=== PATIENT | male | born 1970 | race Caucasian/White ===

== ENCOUNTER → 2019-05-19 | Outpatient (REF) | payer BC, MEDICAID ==
[2019-05-19 14:53] LABS: APPEARANCE, URINE CLEAR (CLEAR); BACTERIA, URINE AUTO NEGATIVE (NEGATIVE); BILIRUBIN, URINE AUTO NEGATIVE (NEGATIVE); BLOOD, URINE BLOOD NEGATIVE (NEGATIVE); COLOR, URINE YELLOW (YELLOW); GLUCOSE, URINE (UA) AUTO NEGATIVE (NEGATIVE); KETONE, URINE AUTO NEGATIVE (NEGATIVE); LEUKOCYTE ESTERASE, URINE AUTO NEGATIVE (NEGATIVE); MUCUS, URINE SMALL (NEGATIVE); NITRITE, URINE AUTO NEGATIVE (NEGATIVE); PROTEIN, URINE AUTO NEGATIVE (NEGATIVE); RBC, URINE AUTO 3 /HPF (0-3); SPECIFIC GRAVITY URINE AUTO 1.017 (1.002-1.035); SQUAMOUS EPITHELIAL CELL UR AU 0 /HPF (0-6); UROBILINOGEN, URINE AUTO 0.2 mg/dL (0.0-2.0); WBC, URINE AUTO 0 /HPF (0-3)
[2019-05-19 15:05] LABS: ALBUMIN 4.4 GM/DL (3.2-5.2); ALT/SGPT 19 U/L (12-78); BILIRUBIN,TOTAL 0.5 MG/DL (0.2-1.0); BLOOD UREA NITROGEN 13 MG/DL (7-18); CALCIUM LEVEL 9.5 MG/DL (8.5-10.1); CARBON DIOXIDE LEVEL 34 MEQ/L (21-32); CHLORIDE LEVEL 102 MEQ/L (98-107); CREATININE FOR GFR 1.17 MG/DL (0.70-1.30); GLOMERULAR FILTRATION RATE > 60.0 (>56); GLUCOSE, FASTING 77 MG/DL (70-100); POTASSIUM SERUM 4.3 MEQ/L (3.5-5.1); SODIUM LEVEL 139 MEQ/L (136-145)
[2019-05-19 16:41] LABS: CHLAMYDIA DNA AMPLIFICATION NEGATIVE (NEGATIVE); GC DNA AMPLIFICATION NEGATIVE (NEGATIVE)
[2019-05-20 11:16] LABS: HEPATITIS B SURFACE ANTIBODY POSITIVE (POSITIVE)
[2019-05-20 11:24] LABS: HEPATITIS B SURFACE ANTIGEN NEGATIVE (NEGATIVE)
[2019-05-20 11:53] LABS: HEPATITIS C VIRUS ABY INDEX 0.1 INDEX (<0.8)
[2019-05-24 00:06] LABS: % CD8 Pos Lymph 65.4 % (12.0-35.5); %CD4 Pos Lymphs 5.6 % (30.8-58.5); ABS Basophils 0.1 x10E3/uL (0.0-0.2); ABS Eosinophils 0.2 x10E3/uL (0.0-0.4); ABS Lymphs 2.2 x10E3/uL (0.7-3.1); ABS Monocytes 0.4 x10E3/uL (0.1-0.9); ABS Neutophils 3.1 x10E3/uL (1.4-7.0); Abs CD4 Helper 123 /uL (359-1519); Abs CD8 Suppres 1439 /uL (109-897); CD4/CD8 Ratio 0.09 (0.92-3.72); Eosinophils 3 % (Not Estab.); HCT 47.7 % (37.5-51.0); HEPATITIS A IgG TOTAL Positive (Negative); HEPATITIS B CORE ANTIBODY IGG Positive (Negative); HGB 17.1 g/dL (13.0-17.7); HIV-1 RNA PCR QUANT 2 LC550285 <20 copies/mL (.); Immature Grans 0 % (Not Estab.); Lymphocytes 37 % (Not Estab.); MCH 33.1 pg (26.6-33.0); MCHC 35.8 g/dL (31.5-35.7); MCV 92 fL (79-97); Monocytes 7 % (Not Estab.); Neutrophils 52 % (Not Estab.); Platelets 265 x10E3/uL (150-450); RBC 5.17 x10E6/uL (4.14-5.80); RDW 14.4 % (12.3-15.4); WBC 5.9 x10E3/uL (3.4-10.8)
== END ==
LOC: M SFHCPLAZ 11:30
PROVIDERS: ATTEND Internal Medicine Infectious Disease
DX: B20 Human immunodeficiency virus [HIV] disease (principal)

== ENCOUNTER → 2020-10-25 | Outpatient (REF) | payer OTHER ==
[2020-10-25 12:12] LABS: ALBUMIN 3.7 GM/DL (3.2-5.2); ALT/SGPT 22 U/L (12-78); BILIRUBIN,TOTAL 0.2 MG/DL (0.2-1.0); BLOOD UREA NITROGEN 12 MG/DL (7-18); CALCIUM LEVEL 8.7 MG/DL (8.5-10.1); CARBON DIOXIDE LEVEL 29 MEQ/L (21-32); CHLORIDE LEVEL 106 MEQ/L (98-107); CREATININE FOR GFR 0.92 MG/DL (0.70-1.30); GLOMERULAR FILTRATION RATE > 60.0 (>56); GLUCOSE, FASTING 87 MG/DL (70-100); POTASSIUM SERUM 4.5 MEQ/L (3.5-5.1); SODIUM LEVEL 141 MEQ/L (136-145); TOTAL PROTEIN 6.8 GM/DL (6.4-8.2)
[2020-10-27 04:07] LABS: % CD8 Pos Lymph 59.6 % (12.0-35.5); %CD4 Pos Lymphs 10.4 % (30.8-58.5); ABS Basophils 0.1 x10E3/uL (0.0-0.2); ABS Eosinophils 0.2 x10E3/uL (0.0-0.4); ABS Lymphs 1.9 x10E3/uL (0.7-3.1); ABS Monocytes 0.4 x10E3/uL (0.1-0.9); ABS Neutophils 2.2 x10E3/uL (1.4-7.0); Abs CD4 Helper 198 /uL (359-1519); Abs CD8 Suppres 1132 /uL (109-897); CD4/CD8 Ratio 0.17 (0.92-3.72); Eosinophils 4 % (Not Estab.); HCT 43.6 % (37.5-51.0); HGB 15.2 g/dL (13.0-17.7); HIV-1 RNA PCR QUANT 2 LC550285 <20 copies/mL (.); Immature Grans 0 % (Not Estab.); Lymphocytes 39 % (Not Estab.); MCH 33.6 pg (26.6-33.0); MCHC 34.9 g/dL (31.5-35.7); MCV 97 fL (79-97); Monocytes 8 % (Not Estab.); Neutrophils 47 % (Not Estab.); Platelets 288 x10E3/uL (150-450); RBC 4.52 x10E6/uL (4.14-5.80); RDW 11.9 % (11.6-15.4); WBC 4.7 x10E3/uL (3.4-10.8)
== END ==
LOC: M SFHCPLAZ 08:54
PROVIDERS: ATTEND Internal Medicine Infectious Disease
DX: B20 Human immunodeficiency virus [HIV] disease (principal)

== ENCOUNTER → 2021-04-30 | Outpatient (REF) | payer OTHER ==
[2021-04-30 14:10] LABS: ALBUMIN 3.9 GM/DL (3.2-5.2); ALT/SGPT 28 U/L (12-78); BILIRUBIN,TOTAL 0.4 MG/DL (0.2-1.0); BLOOD UREA NITROGEN 15 MG/DL (7-18); CALCIUM LEVEL 9.5 MG/DL (8.5-10.1); CARBON DIOXIDE LEVEL 29 MEQ/L (21-32); CHLORIDE LEVEL 106 MEQ/L (98-107); CHOLESTEROL LEVEL 238 MG/DL (<200); CHOLESTEROL RISK RATIO 2.704 (<5); CREATININE FOR GFR 0.88 MG/DL (0.70-1.30); GLOMERULAR FILTRATION RATE > 60.0 (>56); GLUCOSE, FASTING 92 MG/DL (70-100); HDL CHOLESTEROL 88 MG/DL (>40); LDL CHOLESTEROL 126 MG/DL (<100); NON-HDL-C 150 MG/DL; POTASSIUM SERUM 4.8 MEQ/L (3.5-5.1); SODIUM LEVEL 140 MEQ/L (136-145); TOTAL PROTEIN 7.1 GM/DL (6.4-8.2); TRIGLYCERIDES LEVEL 120 MG/DL (<150)
[2021-04-30 14:58] LABS: HEPATITIS C VIRUS ABY INDEX < 0.0 INDEX (<0.8)
[2021-05-01 18:12] LABS: % CD8 Pos Lymph 58.7 % (12.0-35.5); %CD4 Pos Lymphs 11.5 % (30.8-58.5); ABS Basophils 0.1 x10E3/uL (0.0-0.2); ABS Eosinophils 0.2 x10E3/uL (0.0-0.4); ABS Lymphs 2.1 x10E3/uL (0.7-3.1); ABS Monocytes 0.5 x10E3/uL (0.1-0.9); ABS Neutophils 2.7 x10E3/uL (1.4-7.0); Abs CD4 Helper 242 /uL (359-1519); Abs CD8 Suppres 1233 /uL (109-897); Eosinophils 4 % (Not Estab.); HCT 45.6 % (37.5-51.0); HGB 16.6 g/dL (13.0-17.7); HIV-1 RNA PCR QUANT 2 LC550285 20 copies/mL (.); HIV-1 RNA PCR QUANT 3 LC550285 1.301 (.); Immature Grans 1 % (Not Estab.); Lymphocytes 37 % (Not Estab.); MCH 33.5 pg (26.6-33.0); MCHC 36.4 g/dL (31.5-35.7); MCV 92 fL (79-97); Monocytes 9 % (Not Estab.); Neutrophils 47 % (Not Estab.); Platelets 291 x10E3/uL (150-450); RBC 4.95 x10E6/uL (4.14-5.80); RDW 11.4 % (11.6-15.4); WBC 5.7 x10E3/uL (3.4-10.8)
== END ==
LOC: M SFHCPLAZ 10:47
PROVIDERS: ATTEND Internal Medicine Infectious Disease
DX: B20 Human immunodeficiency virus [HIV] disease (principal); Z13.220 Encounter for screening for lipoid disorders; Z12.5 Encounter for screening for malignant neoplasm of prostate

== ENCOUNTER 2024-11-23 18:23 | Inpatient (IN) | payer OTHER ==
[~2024-11-23] VITALS: Ht 180.3 cm; Wt 67.0 kg
[2024-11-23] MEDS: ACETAMINOPHEN 325 MG TAB PO ONE (19:03)
[2024-11-23] MEDS: NS (Normal Saline) 0.9% 1,000 ML IV ONE ×2 (19:03→21:13)
[2024-11-23 19:41] LABS: BASO % 0.4 % (0.0-1.0); EOS % 0.4 % (0.0-3.0); HEMATOCRIT 29.7 % (42.0-52.0); HEMOGLOBIN 9.8 g/dl (13.5-17.5); LYMPH # 0.4 10^3/uL (1.5-5.0); LYMPH % 14.9 % (24.0-44.0); MEAN CORPUSCULAR VOLUME 84.9 fl (80.0-96.0); MONO # 0.2 10^3/uL (0.0-0.8); MONO % 8.4 % (2.0-8.0); NEUTROPHILS # 2.1 10^3/uL (1.5-8.5); NEUTROPHILS % 74.4 % (36.0-66.0); PLATELET COUNT, AUTOMATED 159 10^3/uL (150-450); WHITE BLOOD COUNT 2.8 10^3/uL (4.0-10.0)
[2024-11-23 19:43] LABS: INR 0.91; PARTIAL THROMBOPLASTIN TIME 41.2 SECONDS (24.8-34.2); PROTHROMBIN TIME 12.5 SECONDS (12.5-14.5)
[2024-11-23 19:51] LABS: ALBUMIN 2.8 G/DL (3.2-5.2); ALKALINE PHOSPHATASE 276 U/L (40-129); ALT/SGPT 150 U/L (7.0-40); AST/SGOT 221 U/L (<34); BILIRUBIN,DIRECT 0.3 MG/DL (<0.4); BILIRUBIN,TOTAL 0.6 MG/DL (0.3-1.2); BLOOD UREA NITROGEN 19 MG/DL (9-23); CALCIUM LEVEL 8.2 MG/DL (8.5-10.1); CARBON DIOXIDE LEVEL 28 MMOL/L (20-31); CHLORIDE LEVEL 97 MMOL/L (98-107); CK-MB VALUE MASS 7.8 NG/ML (<3.6); CPK CREATINE PHOSPHOKINASE 469 U/L (46-171); CREATININE FOR GFR 0.97 MG/DL (0.70-1.30); GLOMERULAR FILTRATION RATE > 60.0 (>56); GLUCOSE, FASTING 97 MG/DL (60-100); MB/CK RELATIVE INDEX 1.66 (< OR =4); POTASSIUM SERUM 4.3 MMOL/L (3.5-5.1); SODIUM LEVEL 136 MMOL/L (136-145); TOTAL PROTEIN 6.8 G/DL (5.7-8.2)
[2024-11-23] MEDS: LevoFLOXacin IV 750 MG in IV 1 EA IV ONE (19:51)
[2024-11-23 20:28] LABS: APPEARANCE, URINE HAZY (CLEAR); BACTERIA, URINE AUTO NEGATIVE (NEGATIVE); BILIRUBIN, URINE AUTO NEGATIVE (NEGATIVE); BLOOD, URINE BLOOD 2+ (NEGATIVE); COLOR, URINE AMBER (YELLOW); GLUCOSE, URINE (UA) AUTO NEGATIVE (NEGATIVE); KETONE, URINE AUTO NEGATIVE (NEGATIVE); LEUKOCYTE ESTERASE, URINE AUTO NEGATIVE (NEGATIVE); MUCUS, URINE SMALL (NEGATIVE); NITRITE, URINE AUTO NEGATIVE (NEGATIVE); PROTEIN, URINE AUTO 3+ mg/dL (NEGATIVE); RBC, URINE AUTO 180 /HPF (0-3); SPECIFIC GRAVITY URINE AUTO 1.023 (1.002-1.035); SQUAMOUS EPITHELIAL CELL UR AU 0 /HPF (0-6); WBC, URINE AUTO 4 /HPF (0-3)
[2024-11-23 21:48] LABS: CK-MB VALUE MASS 10.2 NG/ML (<3.6)
[2024-11-23 21:49] LABS: MB/CK RELATIVE INDEX 2.11 (< OR =4)
[2024-11-23] MEDS ORDERED: LEVO1TAB39 PO (22:07)
[2024-11-23] MEDS ORDERED: HOME MED LIST COMPLETE! XX SCH (22:10)
[2024-11-23] MEDS: VANCOMYCIN HCL 1,000 MG, VIAL MATE ADAPTER 1 EACH in NS 250 ML IV ONE (22:12)
[2024-11-23] MEDS: IBUPROFEN 600MG TAB PO ONE (22:12)
[2024-11-24] MEDS ORDERED: MOM 30ML SUSPENSION UDC PO PRN (01:00)
[2024-11-24] MEDS: SODIUM CHLORIDE 0.9% 1000 ML IV ONE (01:04)
[2024-11-24 03:00] VITALS: BP 90/68; TEMP 94.9; O2SAT 98
[2024-11-24 04:00] VITALS: BP 114/60; TEMP 95.4; O2SAT 96
[2024-11-24] MEDS: VANCOMYCIN HCL 1,000 MG, VIAL MATE ADAPTER 1 EACH in NS 250 ML IV SCH (06:16)
[2024-11-24 06:47] LABS: HEMATOCRIT 24.5 % (42.0-52.0); HEMOGLOBIN 7.9 g/dl (13.5-17.5); MEAN CORPUSCULAR HEMOGLOBIN 28.3 pg (27.0-33.0); MEAN CORPUSCULAR HGB CONC 32.2 g/dl (32.0-36.5); MEAN CORPUSCULAR VOLUME 87.8 fl (80.0-96.0); PLATELET COUNT, AUTOMATED 114 10^3/uL (150-450); RED BLOOD COUNT 2.79 10^6/uL (4.30-6.10)
[2024-11-24 07:38] LABS: ALBUMIN 1.9 G/DL (3.2-5.2); ALKALINE PHOSPHATASE 207 U/L (40-129); ALT/SGPT 106 U/L (7.0-40); AST/SGOT 158 U/L (<34); BILIRUBIN,TOTAL 0.3 MG/DL (0.3-1.2); BLOOD UREA NITROGEN 18 MG/DL (9-23); CALCIUM LEVEL 6.8 MG/DL (8.5-10.1); CARBON DIOXIDE LEVEL 26 MMOL/L (20-31); CHLORIDE LEVEL 106 MMOL/L (98-107); CREATININE FOR GFR 0.91 MG/DL (0.70-1.30); GLOMERULAR FILTRATION RATE > 60.0 (>56); GLUCOSE, FASTING 82 MG/DL (60-100); POTASSIUM SERUM 3.7 MMOL/L (3.5-5.1); SODIUM LEVEL 140 MMOL/L (136-145); TOTAL PROTEIN 4.7 G/DL (5.7-8.2)
[2024-11-24] MEDS: ENOXAPARIN 40MG/0.4ML SYRINGE (J1650 PER 10MG) SC SCH (09:00)
[2024-11-24 12:00] VITALS: BP 146/76; TEMP 98.6; O2SAT 94
[2024-11-24] MEDS ORDERED: ISOVUE-370 76% 100ML VIAL As Ordered ONE (17:02)
[2024-11-24] MEDS: ACETAMINOPHEN 325 MG TAB PO PRN (17:39)
[2024-11-24 17:41] VITALS: BP 116/79; TEMP 102.4
[2024-11-24 18:39] VITALS: TEMP 101
[2024-11-24 19:14] LABS: HEPATITIS B SURFACE ANTIBODY POSITIVE (POSITIVE)
[2024-11-24 19:25] LABS: HEPATITIS B SURFACE ANTIGEN NEGATIVE (NEGATIVE)
[2024-11-24 19:46] LABS: HEPATITIS C VIRUS ABY INDEX < 0.02 INDEX (<0.8)
[2024-11-24] MEDS ORDERED: LevoFLOXacin IV 750 MG in IV 1 EA IV SCH (20:00)
[2024-11-24] MEDS: LevoFLOXacin 750 MG TABLET PO SCH (20:38)
[2024-11-24] MEDS: FLUCONAZOLE 200 MG in IV 1 EA IV SCH (20:38)
[2024-11-25 04:00] VITALS: BP 108/65; TEMP 97.5; O2SAT 99
[2024-11-25] MEDS: SUCRALFATE 1 GM TAB PO SCH (07:30)
[2024-11-25] MEDS: BIKTARVY 50 MG/200 MG/25 MG TAB (PATIENT'S OWN MED) PO SCH (09:00)
[2024-11-25 10:09] LABS: BASO % 0.8 % (0.0-1.0); EOS # 0.1 10^3/uL (0.0-0.5); EOS % 5.1 % (0.0-3.0); HEMATOCRIT 27.8 % (42.0-52.0); HEMOGLOBIN 9.1 g/dl (13.5-17.5); LYMPH # 0.5 10^3/uL (1.5-5.0); LYMPH % 19.1 % (24.0-44.0); MEAN CORPUSCULAR HEMOGLOBIN 28.3 pg (27.0-33.0); MEAN CORPUSCULAR HGB CONC 32.7 g/dl (32.0-36.5); MEAN CORPUSCULAR VOLUME 86.3 fl (80.0-96.0); MONO # 0.2 10^3/uL (0.0-0.8); MONO % 6.8 % (2.0-8.0); NEUTROPHILS # 1.6 10^3/uL (1.5-8.5); NEUTROPHILS % 67.4 % (36.0-66.0); PLATELET COUNT, AUTOMATED 138 10^3/uL (150-450); RED BLOOD COUNT 3.22 10^6/uL (4.30-6.10); WHITE BLOOD COUNT 2.4 10^3/uL (4.0-10.0)
[2024-11-25] MEDS: NYSTATIN 500,000U/5ML SUSP UDC SS SCH (10:09)
[2024-11-25] MEDS: PANTOPRAZOLE 40MG TAB (PROTONIX) PO SCH (10:09)
[2024-11-25] MEDS: BACTRIM 160MG/800MG DS TAB PO SCH (10:09)
[2024-11-25 10:24] LABS: BLOOD UREA NITROGEN 11 MG/DL (9-23); CALCIUM LEVEL 7.6 MG/DL (8.5-10.1); CARBON DIOXIDE LEVEL 28 MMOL/L (20-31); CHLORIDE LEVEL 106 MMOL/L (98-107); CREATININE FOR GFR 0.74 MG/DL (0.70-1.30); GLOMERULAR FILTRATION RATE > 60.0 (>56); GLUCOSE, FASTING 99 MG/DL (60-100); LDH LACTATE DEHYDROGENASE 513 U/L (120-246); MAGNESIUM LEVEL 1.6 MG/DL (1.8-2.4); POTASSIUM SERUM 3.4 MMOL/L (3.5-5.1); SODIUM LEVEL 140 MMOL/L (136-145)
[2024-11-25 12:00] VITALS: BP 95/60; TEMP 97.3; O2SAT 100
[2024-11-25 15:07] LABS: % CD4+ LYMPHS 1.5 % (30.8-58.5); ABSOLUTE CD4 HELPER 8 /uL (359-1519); BASOPHILS 0 % (Not Estab.); EOSINOPHILS 0 % (Not Estab.); HCT 24.2 % (37.5-51.0); HGB 8.1 g/dL (13.0-17.7); LYMPHOCYTES 19 % (Not Estab.); LYMPHOCYTES ABSOLUTE 0.5 x10E3/uL (0.7-3.1); MCH 28.3 pg (26.6-33.0); MCHC 33.5 g/dL (31.5-35.7); MCV 85 fL (79-97); MONOCYTES 7 % (Not Estab.); MONOCYTES ABSOLUTE 0.2 x10E3/uL (0.1-0.9); NEUTROPHILS 73 % (Not Estab.); NEUTROPHILS ABSOLUTE 1.7 x10E3/uL (1.4-7.0); PLT 117 x10E3/uL (150-450); RBC 2.86 x10E6/uL (4.14-5.80); RDW 14.4 % (11.6-15.4); WBC 2.3 x10E3/uL (3.4-10.8)
[2024-11-25 20:00] VITALS: TEMP 98.8; O2SAT 96
[2024-11-25] MEDS: FLUCONAZOLE 100 MG TAB PO SCH (21:26)
[2024-11-26 04:00] VITALS: BP 92/60; TEMP 97.7; O2SAT 100
[2024-11-26 06:18] LABS: BASO % 0.7 % (0.0-1.0); EOS % 1.1 % (0.0-3.0); HEMATOCRIT 28.3 % (42.0-52.0); LYMPH # 0.7 10^3/uL (1.5-5.0); LYMPH % 25.7 % (24.0-44.0); MEAN CORPUSCULAR HEMOGLOBIN 27.7 pg (27.0-33.0); MEAN CORPUSCULAR HGB CONC 31.8 g/dl (32.0-36.5); MEAN CORPUSCULAR VOLUME 87.1 fl (80.0-96.0); MONO # 0.2 10^3/uL (0.0-0.8); MONO % 7.4 % (2.0-8.0); NEUTROPHILS # 1.7 10^3/uL (1.5-8.5); PLATELET COUNT, AUTOMATED 142 10^3/uL (150-450); RED BLOOD COUNT 3.25 10^6/uL (4.30-6.10); WHITE BLOOD COUNT 2.7 10^3/uL (4.0-10.0)
[2024-11-26 06:46] LABS: BLOOD UREA NITROGEN 7 MG/DL (9-23); CALCIUM LEVEL 7.2 MG/DL (8.5-10.1); CARBON DIOXIDE LEVEL 28 MMOL/L (20-31); CHLORIDE LEVEL 103 MMOL/L (98-107); CREATININE FOR GFR 0.78 MG/DL (0.70-1.30); GLOMERULAR FILTRATION RATE > 60.0 (>56); GLUCOSE, FASTING 79 MG/DL (60-100); MAGNESIUM LEVEL 1.6 MG/DL (1.8-2.4); POTASSIUM SERUM 3.6 MMOL/L (3.5-5.1); SODIUM LEVEL 138 MMOL/L (136-145)
[2024-11-26] MEDS: MAGNESIUM OXIDE 400MG TAB (MAG-OX) PO SCH (08:31)
[2024-11-26 12:00] VITALS: BP 107/62; TEMP 98.1; O2SAT 99
[2024-11-26 20:15] VITALS: BP 113/65; TEMP 97.9; O2SAT 98
[2024-11-27 04:16] VITALS: BP 99/64; TEMP 98.1; O2SAT 96
[2024-11-27 07:08] LABS: BLOOD UREA NITROGEN 7 MG/DL (9-23); CALCIUM LEVEL 7.7 MG/DL (8.5-10.1); CARBON DIOXIDE LEVEL 29 MMOL/L (20-31); CHLORIDE LEVEL 103 MMOL/L (98-107); GLOMERULAR FILTRATION RATE > 60.0 (>56); GLUCOSE, FASTING 82 MG/DL (60-100); MAGNESIUM LEVEL 1.7 MG/DL (1.8-2.4); POTASSIUM SERUM 3.9 MMOL/L (3.5-5.1); SODIUM LEVEL 138 MMOL/L (136-145)
[2024-11-27 07:56] LABS: BASO % 0.4 % (0.0-1.0); EOS % 1.6 % (0.0-3.0); HEMATOCRIT 28.7 % (42.0-52.0); HEMOGLOBIN 9.4 g/dl (13.5-17.5); LYMPH # 0.7 10^3/uL (1.5-5.0); LYMPH % 27.2 % (24.0-44.0); MEAN CORPUSCULAR HEMOGLOBIN 27.9 pg (27.0-33.0); MEAN CORPUSCULAR HGB CONC 32.8 g/dl (32.0-36.5); MEAN CORPUSCULAR VOLUME 85.2 fl (80.0-96.0); MONO # 0.2 10^3/uL (0.0-0.8); MONO % 8.6 % (2.0-8.0); NEUTROPHILS # 1.5 10^3/uL (1.5-8.5); NEUTROPHILS % 61.4 % (36.0-66.0); PLATELET COUNT, AUTOMATED 144 10^3/uL (150-450); RED BLOOD COUNT 3.37 10^6/uL (4.30-6.10); WHITE BLOOD COUNT 2.4 10^3/uL (4.0-10.0)
[2024-11-27] MEDS: MAG SULF 1GM/100ML (MAG RUN) 1 GM in IV 1 EA IV SCH (09:16)
[2024-11-27 12:00] VITALS: BP 113/62; TEMP 97.8; O2SAT 96
[2024-11-27 20:00] VITALS: BP 107/81; TEMP 98.1; O2SAT 97
[2024-11-27 21:33] LABS: FUNGITELL INTERPRETATION POSITIVE (NEGATIVE); FUNGITELL, SERUM > 500 pg/mL (<60)
[2024-11-28 04:00] VITALS: TEMP 97.3; O2SAT 100
[2024-11-28 06:11] LABS: BASO % 0.9 % (0.0-1.0); EOS # 0.1 10^3/uL (0.0-0.5); EOS % 2.2 % (0.0-3.0); HEMATOCRIT 30.3 % (42.0-52.0); HEMOGLOBIN 9.9 g/dl (13.5-17.5); LYMPH # 0.5 10^3/uL (1.5-5.0); LYMPH % 21.4 % (24.0-44.0); MEAN CORPUSCULAR HGB CONC 32.7 g/dl (32.0-36.5); MEAN CORPUSCULAR VOLUME 85.8 fl (80.0-96.0); MONO # 0.2 10^3/uL (0.0-0.8); MONO % 7.9 % (2.0-8.0); NEUTROPHILS # 1.5 10^3/uL (1.5-8.5); NEUTROPHILS % 66.3 % (36.0-66.0); PLATELET COUNT, AUTOMATED 140 10^3/uL (150-450); RED BLOOD COUNT 3.53 10^6/uL (4.30-6.10); WHITE BLOOD COUNT 2.3 10^3/uL (4.0-10.0)
[2024-11-28 06:22] LABS: BLOOD UREA NITROGEN 9 MG/DL (9-23); CALCIUM LEVEL 7.4 MG/DL (8.5-10.1); CARBON DIOXIDE LEVEL 29 MMOL/L (20-31); CHLORIDE LEVEL 103 MMOL/L (98-107); CREATININE FOR GFR 0.78 MG/DL (0.70-1.30); GLOMERULAR FILTRATION RATE > 60.0 (>56); GLUCOSE, FASTING 94 MG/DL (60-100); POTASSIUM SERUM 3.6 MMOL/L (3.5-5.1); SODIUM LEVEL 137 MMOL/L (136-145)
[2024-11-28 12:12] LABS: C REACTIVE PROTEIN QUANTITATIV 1.53 MG/DL (<1.0)
[2024-11-28 12:13] LABS: ALBUMIN 2.2 G/DL (3.2-5.2); ALKALINE PHOSPHATASE 236 U/L (40-129); ALT/SGPT 84 U/L (7.0-40); AST/SGOT 77 U/L (<34); BILIRUBIN,DIRECT 0.2 MG/DL (<0.4); BILIRUBIN,TOTAL 0.4 MG/DL (0.3-1.2); TOTAL PROTEIN 5.5 G/DL (5.7-8.2)
[2024-11-28 17:49] LABS: CMV QUANT DNA PCR (PLASMA) Not Detected; CMV SOURCE Whole Blood; log10 CMV QN DNA P1 Not Detected log IU/mL
[2024-11-28 20:06] VITALS: BP 115/66; TEMP 99; O2SAT 99
[2024-11-28] MEDS: RAMELTEON 8 MG TAB (ROZEREM) PO PRN (21:34)
[2024-11-29 04:23] VITALS: BP 110/78; TEMP 97.7; O2SAT 98
[2024-11-29 10:18] LABS: BASO % 0.9 % (0.0-1.0); EOS % 1.2 % (0.0-3.0); HEMATOCRIT 28.8 % (42.0-52.0); HEMOGLOBIN 9.2 g/dl (13.5-17.5); LYMPH # 0.5 10^3/uL (1.5-5.0); LYMPH % 13.6 % (24.0-44.0); MEAN CORPUSCULAR HEMOGLOBIN 27.3 pg (27.0-33.0); MEAN CORPUSCULAR HGB CONC 31.9 g/dl (32.0-36.5); MEAN CORPUSCULAR VOLUME 85.5 fl (80.0-96.0); MONO # 0.4 10^3/uL (0.0-0.8); MONO % 10.1 % (2.0-8.0); NEUTROPHILS # 2.6 10^3/uL (1.5-8.5); NEUTROPHILS % 73.6 % (36.0-66.0); PLATELET COUNT, AUTOMATED 153 10^3/uL (150-450); RED BLOOD COUNT 3.37 10^6/uL (4.30-6.10); WHITE BLOOD COUNT 3.5 10^3/uL (4.0-10.0)
[2024-11-29 10:37] LABS: BLOOD UREA NITROGEN 10 MG/DL (9-23); CALCIUM LEVEL 7.9 MG/DL (8.5-10.1); CARBON DIOXIDE LEVEL 28 MMOL/L (20-31); CHLORIDE LEVEL 105 MMOL/L (98-107); CREATININE FOR GFR 0.79 MG/DL (0.70-1.30); GLOMERULAR FILTRATION RATE > 60.0 (>56); GLUCOSE, FASTING 85 MG/DL (60-100); MAGNESIUM LEVEL 2.1 MG/DL (1.8-2.4); POTASSIUM SERUM 4.1 MMOL/L (3.5-5.1); SODIUM LEVEL 137 MMOL/L (136-145)
[2024-11-29] MEDS ORDERED: LIDOCAINE 2% MDV 20ML VIAL As Ordered ONE (13:54)
[2024-11-29] MEDS ORDERED: propofoL 200 MG/20 ML VIAL As Ordered ONE (13:54)
[2024-11-29] MEDS ORDERED: fentaNYL 100 MCG/2 ML INJECTION As Ordered ONE (14:18)
[2024-11-29] MEDS ORDERED: ePHEDrine SULFATE 25 MG/5 ML(5MG/ML) SYRINGE As Ordered ONE (14:31)
[2024-11-29 15:42] VITALS: BP 87/56
[2024-11-29] MEDS: NS (Normal Saline) 0.9% 1,000 ML IV ONE (15:52)
[2024-11-29 16:55] VITALS: BP 117/85; TEMP 97.7; O2SAT 99
[2024-11-29 22:18] LABS: CRYTPOCOCCUS SOURCE Serum
[2024-11-30 04:41] VITALS: BP 107/69; TEMP 97.7; O2SAT 96
[2024-11-30 07:09] LABS: BASO % 0.6 % (0.0-1.0); EOS % 1.2 % (0.0-3.0); HEMATOCRIT 26.9 % (42.0-52.0); HEMOGLOBIN 8.7 g/dl (13.5-17.5); LYMPH # 0.5 10^3/uL (1.5-5.0); LYMPH % 14.6 % (24.0-44.0); MEAN CORPUSCULAR HGB CONC 32.3 g/dl (32.0-36.5); MEAN CORPUSCULAR VOLUME 86.5 fl (80.0-96.0); MONO # 0.2 10^3/uL (0.0-0.8); MONO % 7.4 % (2.0-8.0); NEUTROPHILS # 2.4 10^3/uL (1.5-8.5); NEUTROPHILS % 75.6 % (36.0-66.0); PLATELET COUNT, AUTOMATED 170 10^3/uL (150-450); RED BLOOD COUNT 3.11 10^6/uL (4.30-6.10); WHITE BLOOD COUNT 3.2 10^3/uL (4.0-10.0)
[2024-11-30 07:58] LABS: BLOOD UREA NITROGEN 9 MG/DL (9-23); CALCIUM LEVEL 7.9 MG/DL (8.5-10.1); CARBON DIOXIDE LEVEL 29 MMOL/L (20-31); CHLORIDE LEVEL 103 MMOL/L (98-107); CREATININE FOR GFR 0.82 MG/DL (0.70-1.30); GLOMERULAR FILTRATION RATE > 60.0 (>56); GLUCOSE, FASTING 77 MG/DL (60-100); MAGNESIUM LEVEL 2.1 MG/DL (1.8-2.4); POTASSIUM SERUM 4.8 MMOL/L (3.5-5.1); SODIUM LEVEL 138 MMOL/L (136-145)
[2024-11-30] MEDS: SENOKOT S TAB PO SCH (09:00)
[2024-11-30 11:07] LABS: HIV-1 RNA PCR QUANT 3 6.1 (NOT DETECTED)
[2024-11-30] MEDS ORDERED: BACTDSTA PO (11:25)
[2024-11-30] MEDS ORDERED: Patient Own Medication PO (11:25)
[2024-11-30] MEDS ORDERED: FLUC100T3 PO (11:25)
[2024-11-30 12:00] VITALS: BP 80/58; TEMP 97.5; O2SAT 98
[2024-11-30 12:18] VITALS: BP 96/62
[2024-12-01 12:37] LABS: HBV IU/mL NOT DETECTED (NOT DETECTED); log 10 HBV IU/mL NOT DETECTED Log IU/mL (NOT DETECTED)
== END 2024-11-30 14:10 | disposition home or self-care (01) | DRG 890 ==
LOC: EDBD 18:23 → M ED 18:23 → M ED INP 23:13 → M MS5PR 11-24 02:57 → OBSVTOIN 11-25 09:23 → M MS5PR 11-28 12:55
PROVIDERS: ADMIT Family Medicine; ATTEND Student in an Organized Health Care Education/Training Program
PROC: 0DJ08ZZ Inspection of Upper Intestinal Tract, Via Natural or Artificial Opening Endoscopic (ICD-10-PCS; principal; 2024-11-29 14:45)
DX: A41.9 Sepsis, unspecified organism (principal); B37.0 Candidal stomatitis; J18.9 Pneumonia, unspecified organism; B20 Human immunodeficiency virus [HIV] disease; D70.9 Neutropenia, unspecified; R16.0 Hepatomegaly, not elsewhere classified; F20.9 Schizophrenia, unspecified; K74.60 Unspecified cirrhosis of liver; E86.0 Dehydration; N39.0 Urinary tract infection, site not specified; R74.01 Elevation of levels of liver transaminase levels; M62.84 Sarcopenia; K02.9 Dental caries, unspecified; F17.210 Nicotine dependence, cigarettes, uncomplicated; Z59.00 Homelessness unspecified; Z91.141 Patient's other noncompliance with medication regimen due to financial hardship; Z88.0 Allergy status to penicillin; R93.3 Abnormal findings on diagnostic imaging of other parts of digestive tract

== ENCOUNTER 2024-11-30 20:14 | Emergency (ER) | payer OTHER ==
[~2024-11-30] VITALS: Ht 180.3 cm; Wt 74.8 kg
[~2024-11-30 20:14] MED LIST: BACTDSTA PO; FLUC100T3 PO; LEVO1TAB39 PO; Patient Own Medication PO
[2024-11-30 21:27] LABS: BASO % 0.5 % (0.0-1.0); EOS % 0.7 % (0.0-3.0); HEMATOCRIT 27.2 % (42.0-52.0); HEMOGLOBIN 8.9 g/dl (13.5-17.5); LYMPH # 0.6 10^3/uL (1.5-5.0); MEAN CORPUSCULAR HEMOGLOBIN 28.3 pg (27.0-33.0); MEAN CORPUSCULAR HGB CONC 32.7 g/dl (32.0-36.5); MEAN CORPUSCULAR VOLUME 86.3 fl (80.0-96.0); MONO # 0.5 10^3/uL (0.0-0.8); MONO % 10.7 % (2.0-8.0); NEUTROPHILS # 3.2 10^3/uL (1.5-8.5); NEUTROPHILS % 73.6 % (36.0-66.0); PLATELET COUNT, AUTOMATED 204 10^3/uL (150-450); RED BLOOD COUNT 3.15 10^6/uL (4.30-6.10); WHITE BLOOD COUNT 4.3 10^3/uL (4.0-10.0)
[2024-11-30 21:45] LABS: LIPASE 56 U/L (12-53)
[2024-11-30 21:47] LABS: ALBUMIN 2.5 G/DL (3.2-5.2); ALKALINE PHOSPHATASE 239 U/L (40-129); ALT/SGPT 60 U/L (7.0-40); AST/SGOT 32 U/L (<34); BILIRUBIN,DIRECT 0.1 MG/DL (<0.4); BILIRUBIN,TOTAL 0.4 MG/DL (0.3-1.2); BLOOD UREA NITROGEN 10 MG/DL (9-23); CALCIUM LEVEL 8.2 MG/DL (8.5-10.1); CARBON DIOXIDE LEVEL 28 MMOL/L (20-31); CHLORIDE LEVEL 104 MMOL/L (98-107); GLOMERULAR FILTRATION RATE > 60.0 (>56); GLUCOSE, FASTING 80 MG/DL (60-100); POTASSIUM SERUM 4.7 MMOL/L (3.5-5.1); SODIUM LEVEL 136 MMOL/L (136-145); TOTAL PROTEIN 6.2 G/DL (5.7-8.2)
[2024-12-01 06:14] VITALS: BP 105/69; TEMP 97.7; O2SAT 100
== END 2024-12-01 06:18 | disposition home or self-care (01) ==
LOC: M ED 20:14 → EDBD 20:14 → M ED 12-01 06:18
DX: R10.9 Unspecified abdominal pain (principal); Z59.00 Homelessness unspecified; Z88.0 Allergy status to penicillin; Z79.899 Other long term (current) drug therapy

== ENCOUNTER → 2025-01-03 | Outpatient (CLI) | payer OTHER ==
[2025-01-03 15:29] LABS: ALBUMIN 3.2 G/DL (3.2-5.2); ALKALINE PHOSPHATASE 101 U/L (40-129); ALT/SGPT 28 U/L (7.0-40); AST/SGOT < 8 U/L (<34); BILIRUBIN,TOTAL 0.3 MG/DL (0.3-1.2); BLOOD UREA NITROGEN 15 MG/DL (9-23); CALCIUM LEVEL 9.1 MG/DL (8.5-10.1); CARBON DIOXIDE LEVEL 26 MMOL/L (20-31); CHLORIDE LEVEL 107 MMOL/L (98-107); CREATININE FOR GFR 0.82 MG/DL (0.70-1.30); FOLATE 16.1 NG/ML (>5.4); GLOMERULAR FILTRATION RATE > 60.0 (>56); GLUCOSE, FASTING 72 MG/DL (60-100); POTASSIUM SERUM 4.5 MMOL/L (3.5-5.1); SODIUM LEVEL 142 MMOL/L (136-145); TOTAL PROTEIN 6.9 G/DL (5.7-8.2)
[2025-01-03 15:30] LABS: FREE T4 0.93 NG/DL (0.89-1.76); THYROID STIMULATING HORMONE 1.355 uIU/ML (0.55-4.78)
[2025-01-03 15:33] LABS: VITAMIN B12 LEVEL 172 PG/ML (211-911)
[2025-01-04 14:11] LABS: % CD4+ LYMPHS 2.5 % (30.8-58.5); ABSOLUTE CD4 HELPER 60 /uL (359-1519); BASOPHILS 2 % (Not Estab.); BASOPHILS ABSOLUTE 0.1 x10E3/uL (0.0-0.2); EOSINOPHILS 6 % (Not Estab.); EOSINOPHILS ABSOLUTE 0.4 x10E3/uL (0.0-0.4); HCT 34.7 % (37.5-51.0); HGB 11.4 g/dL (13.0-17.7); Immature Grans 0 % (Not Estab.); LYMPHOCYTES 38 % (Not Estab.); LYMPHOCYTES ABSOLUTE 2.4 x10E3/uL (0.7-3.1); MCH 30.5 pg (26.6-33.0); MCHC 32.9 g/dL (31.5-35.7); MCV 93 fL (79-97); MONOCYTES 11 % (Not Estab.); MONOCYTES ABSOLUTE 0.7 x10E3/uL (0.1-0.9); NEUTROPHILS 43 % (Not Estab.); NEUTROPHILS ABSOLUTE 2.7 x10E3/uL (1.4-7.0); PLT 363 x10E3/uL (150-450); RBC 3.74 x10E6/uL (4.14-5.80); RDW 17.7 % (11.6-15.4); WBC 6.3 x10E3/uL (3.4-10.8)
[2025-01-06 17:37] LABS: HIV-1 RNA PCR QUANT 3 2.16 (NOT DETECTED)
== END ==
LOC: M PLALAB 12:06
PROVIDERS: ATTEND Internal Medicine Infectious Disease
DX: B20 Human immunodeficiency virus [HIV] disease (principal); N39.498 Other specified urinary incontinence; G62.9 Polyneuropathy, unspecified

== ENCOUNTER → 2025-01-05 | Outpatient (REF) | payer OTHER | LOC: M LABDRWAD 12:58 → M PLALAB 12:58 | PROVIDERS: ATTEND Internal Medicine Infectious Disease | DX: B20 Human immunodeficiency virus [HIV] disease (principal) ==

== ENCOUNTER → 2025-02-02 | Outpatient (CLI) | payer OTHER | LOC: M RAD 14:22 | PROVIDERS: ATTEND Internal Medicine Infectious Disease | DX: J18.9 Pneumonia, unspecified organism (principal) ==

== ENCOUNTER 2025-02-24 12:07 | Emergency (ER) | payer OTHER ==
[~2025-02-24] VITALS: Ht 180.3 cm; Wt 74.8 kg
[2025-02-24] MEDS ORDERED: FURO20TA2 (12:25)
[2025-02-24 15:59] LABS: APPEARANCE, URINE CLEAR (CLEAR); BACTERIA, URINE AUTO NEGATIVE (NEGATIVE); BILIRUBIN, URINE AUTO NEGATIVE (NEGATIVE); BLOOD, URINE BLOOD NEGATIVE (NEGATIVE); COLOR, URINE YELLOW (YELLOW); GLUCOSE, URINE (UA) AUTO NEGATIVE (NEGATIVE); KETONE, URINE AUTO NEGATIVE (NEGATIVE); LEUKOCYTE ESTERASE, URINE AUTO NEGATIVE (NEGATIVE); MUCUS, URINE SMALL (NEGATIVE); NITRITE, URINE AUTO NEGATIVE (NEGATIVE); PROTEIN, URINE AUTO 2+ mg/dL (NEGATIVE); RBC, URINE AUTO 0 /HPF (0-3); SPECIFIC GRAVITY URINE AUTO 1.017 (1.002-1.035); SQUAMOUS EPITHELIAL CELL UR AU 0 /HPF (0-6); UROBILINOGEN, URINE AUTO 0.2 mg/dL (0.0-2.0); WBC, URINE AUTO 2 /HPF (0-3)
[2025-02-24 19:40] VITALS: BP 121/80; TEMP 97.4; O2SAT 100
== END 2025-02-24 19:53 | disposition home or self-care (01) ==
LOC: M ED 12:07 → EDBD 12:07 → M ED 19:53
DX: R06.02 Shortness of breath (principal); R00.0 Tachycardia, unspecified; J98.11 Atelectasis; J45.909 Unspecified asthma, uncomplicated; B20 Human immunodeficiency virus [HIV] disease; F20.9 Schizophrenia, unspecified; Z88.0 Allergy status to penicillin; Z79.899 Other long term (current) drug therapy

== ENCOUNTER → 2025-05-01 | Outpatient (CLI) | payer OTHER ==
[~2025-05-01] MED LIST changes: +FURO20TA2
[2025-05-01 16:02] LABS: IRON (FE) 50 UG/DL (65-175); PERCENT SATURATION 16.4 % (19.7-50.0); TOTAL IRON BINDING CAPACITY 305 UG/DL (250-425)
[2025-05-01 16:03] LABS: ALBUMIN 3.2 G/DL (3.2-5.2); ALKALINE PHOSPHATASE 197 U/L (40-129); ALT/SGPT 22 U/L (7.0-40); AST/SGOT 17 U/L (<34); BILIRUBIN,TOTAL 1.9 MG/DL (0.3-1.2); BLOOD UREA NITROGEN 13 MG/DL (9-23); CALCIUM LEVEL 9.1 MG/DL (8.5-10.1); CARBON DIOXIDE LEVEL 26 MMOL/L (20-31); CHLORIDE LEVEL 106 MMOL/L (98-107); CREATININE FOR GFR 0.93 MG/DL (0.70-1.30); GLOMERULAR FILTRATION RATE > 90.0 (>56); GLUCOSE, FASTING 109 MG/DL (60-100); POTASSIUM SERUM 3.6 MMOL/L (3.5-5.1); SODIUM LEVEL 141 MMOL/L (136-145); TOTAL PROTEIN 6.3 G/DL (5.7-8.2)
[2025-05-01 16:04] LABS: FERRITIN 75.4 NG/ML (10.5-307.3)
[2025-05-03 17:22] LABS: % CD4 4 % (30-61); %CD8 72 % (12-42); ABSOLUTE CD4 CELLS 92 cells/uL (490-1740); ABSOLUTE CD8 CELLS 1671 cells/uL (180-1170); ABSOLUTE LYMPHOCYTES 2316 cells/uL (850-3900); CD4 CD8 RATIO 0.05 (0.86-5.00)
[2025-05-06 02:48] LABS: HIV-1 RNA PCR QUANT 2 <20 DETECTED copies/mL (NOT DETECTED); HIV-1 RNA PCR QUANT 3 <1.30 DETECTED (NOT DETECTED)
== END ==
LOC: M PLALAB 13:27
PROVIDERS: ATTEND Internal Medicine Infectious Disease
DX: K74.60 Unspecified cirrhosis of liver (principal)

== ENCOUNTER → 2025-06-26 | Outpatient (CLI) | payer OTHER ==
[2025-06-26 15:29] LABS: ALT/SGPT 18 U/L (7.0-40); AST/SGOT 13 U/L (<34); CALCIUM LEVEL 9.6 MG/DL (8.5-10.1); CARBON DIOXIDE LEVEL 31 MMOL/L (20-31); CHLORIDE LEVEL 105 MMOL/L (98-107); CREATININE FOR GFR 0.87 MG/DL (0.70-1.30); GLOMERULAR FILTRATION RATE > 90.0 (>56); POTASSIUM SERUM 5.1 MMOL/L (3.5-5.1); SODIUM LEVEL 144 MMOL/L (136-145)
[2025-06-26 15:36] LABS: BASO # 0.1 10^3/uL (0.0-0.2); BASO % 1.6 % (0.0-1.0); EOS # 0.4 10^3/uL (0.0-0.5); EOS % 5.0 % (0.0-3.0); LYMPH # 3.0 10^3/uL (1.5-5.0); LYMPH % 36.6 % (24.0-44.0); MONO # 0.6 10^3/uL (0.0-0.8); MONO % 7.7 % (2.0-8.0); NEUTROPHILS # 3.9 10^3/uL (1.5-8.5); NEUTROPHILS % 48.6 % (36.0-66.0); PLATELET COUNT, AUTOMATED 277 10^3/uL (150-450)
== END ==
LOC: M PLALAB 11:29
PROVIDERS: ATTEND Physician Assistant Medical
DX: I50.20 Unspecified systolic (congestive) heart failure (principal)

== ENCOUNTER → 2025-08-21 | Outpatient (CLI) | payer OTHER ==
[2025-08-21 15:46] LABS: ALT/SGPT 19 U/L (7.0-40); AST/SGOT 12 U/L (<34); CALCIUM LEVEL 9.3 MG/DL (8.5-10.1); CARBON DIOXIDE LEVEL 28 MMOL/L (20-31); CHLORIDE LEVEL 104 MMOL/L (98-107); CREATININE FOR GFR 0.84 MG/DL (0.70-1.30); GLOMERULAR FILTRATION RATE > 90.0 (>56); POTASSIUM SERUM 4.3 MMOL/L (3.5-5.1); SODIUM LEVEL 143 MMOL/L (136-145)
[2025-08-23 17:37] LABS: % CD4 5 % (30-61); %CD8 65 % (12-42); ABSOLUTE CD4 CELLS 77 cells/uL (490-1740); ABSOLUTE CD8 CELLS 978 cells/uL (180-1170); ABSOLUTE LYMPHOCYTES 1500 cells/uL (850-3900); CD4 CD8 RATIO 0.08 (0.86-5.00)
[2025-08-24 12:53] LABS: HIV-1 RNA PCR QUANT 2 29 copies/mL (NOT DETECTED); HIV-1 RNA PCR QUANT 3 1.46 (NOT DETECTED)
== END ==
LOC: M PLALAB 12:31
PROVIDERS: ATTEND Internal Medicine Infectious Disease
DX: B20 Human immunodeficiency virus [HIV] disease (principal); I50.20 Unspecified systolic (congestive) heart failure